=== PATIENT | female | born 1940 | race Caucasian/White ===

== ENCOUNTER 2017-04-09 09:52 | Outpatient (CLI) | payer MEDICARE, OTHER | END 2017-04-09 09:53 | LOC: RAD 09:52 | PROVIDERS: ATTEND Family Medicine | DX: M81.0 Age-related osteoporosis without current pathological fracture (principal); N95.9 Unspecified menopausal and perimenopausal disorder | CPT/HCPCS: 77080 ==

== ENCOUNTER 2018-05-23 16:49 | Outpatient (CLI) | payer MEDICARE, OTHER ==
[2018-05-23 17:13] LABS: BASOPHILS % 0.6 (0.0-1.5); EOSINOPHILS % 1.5 % (0.0-6.8); MEAN CORPUSCULAR VOLUME 74.6 fl (80.0-100.0); MONOCYTES % 5.7 % (0.0-11.0)
[2018-05-23 17:28] LABS: eGFR (African) > 60; eGFR (Non-African) > 60
== END 2018-05-23 16:50 ==
LOC: LAB 16:49
PROVIDERS: ATTEND Family Medicine
DX: R53.82 Chronic fatigue, unspecified (principal); I10 Essential (primary) hypertension
CPT/HCPCS: 36415; 80053; 80061; 84436; 84479; 85025

== ENCOUNTER 2018-06-05 11:55 | Outpatient (CLI) | payer MEDICARE ==
[2018-06-05 18:41] LABS: T3-UPTAKE 41.5 % (25.4-41.2)
== END 2018-06-05 13:34 ==
LOC: LAB 11:55
PROVIDERS: ATTEND Family Medicine
DX: D50.9 Iron deficiency anemia, unspecified (principal); R53.82 Chronic fatigue, unspecified
CPT/HCPCS: 36415; 83540; 84436; 84479

== ENCOUNTER 2018-12-24 08:52 | Outpatient (CLI) | payer MEDICARE, OTHER ==
[2018-12-24 09:20] LABS: MEAN CORPUSCULAR HEMOGLOBIN 20.5 pg (28.0-34.0)
[2018-12-24 09:21] LABS: BASOPHILS % 0.2 (0.0-1.5); EOSINOPHILS % 4.5 % (0.0-6.8); NEUTROPHILS # 4.5 # k/uL (1.4-7.7)
[2018-12-24 11:52] LABS: eGFR (Non-African) > 60
--- NOTE | 2018-12-24 21:00 | Diagnostic Imaging Report ---
DEMETRIS ROBBINS [facility] [address] [facility].[address] [address] Report Submission Date: Dec 24, 2018 12:46:28 PM STAPLE LASTER Patient Study Name: GRANT MAYA Date: Dec 24, 2018 9:14:49 AM STAPLE LASTER Modality Type: US Gender: F Description: US DUPLEX CAROTID BILATERAL : 40 Institution: [facility] Physician: DEMETRIS ROBBINS Examination: Carotid artery ultrasound History: Syncope Comparison exams: None available Findings: Right carotid: Common carotid artery peak systolic velocity 96.4 cm/s; end diastolic velocity 18.1 cm/s. Internal carotid artery peak systolic velocity 96.3 cm/s; end diastolic velocity 25.9 cm/s. External carotid artery velocity to 109.4 cm/s. Vertebral artery velocity 74.2 cm/s Vertebral flow antegrade. Normal waveforms. No occlusive plaquing. Left carotid: Common carotid artery peak systolic velocity 95.9 cm/s; end diastolic velocity 17.7 cm/s. Internal carotid artery peak systolic velocity 122.2 cm/s; end diastolic velocity 27.2 cm/s. External carotid artery velocity to 75.4 cm/s. Vertebral artery velocity 26.4 cm/s Vertebral flow antegrade. Normal waveforms. No occlusive plaquing. Right ICA/CCA Ratio: 1.2; Left ICA/CCA Ratio 1.4 Impression: Carotids ratios not elevated. No restriction to hemodynamic flow. Electronically signed on Dec 24, 2018 12:46:28 PM STAPLE LASTER by: Wil PRETTY
--- NOTE | 2018-12-24 21:01 | Diagnostic Imaging Report ---
DEMETRIS ROBBINS [facility] [address] [facility] [address] [address] Report Submission Date: Dec 24, 2018 12:42:10 PM CUSTOMER LOGISTICS MANAGER Patient Study Name: GRANT MAYA Date: Dec 24, 2018 10:25:23 AM CUSTOMER LOGISTICS MANAGER Modality Type: CT\SR Gender: F Description: CT CHEST W/O CONTRAST : 40 Institution: [facility] Physician: DEMETRIS ROBBINS CT chest without contrast History: 30 lb weight loss Technique: Helically acquired images were obtained from the thoracic inlet to the hemidiaphragms without IV contrast. The study was ordered without IV contrast. Findings: There is thoracic aortic atherosclerosis without aneurysm. There is a single mildly enlarged precarinal lymph node measuring 1.7 x 1.1 cm. There is no pericardial effusion or left pleural effusion. There is a small right pleural effusion. There is mild pleural thickening laterally along the mid and lower left hemithorax and there is pleural thickening anteriorly along the lower right hemithorax. There is a generalized background of moderately severe emphysema. Linear areas of atelectasis versus scarring are present at the lung bases. No parenchymal masses are noted. Impression: Moderate emphysema. Small right pleural effusion. Areas of pleural thickening noted bilaterally as detailed in the body of the report with bibasilar areas of atelectasis versus scarring. Single mildly enlarged, nonspecific precarinal lymph node. Electronically signed on Dec 24, 2018 12:42:10 PM CUSTOMER LOGISTICS MANAGER by: Dayna PRETTY
--- NOTE | 2018-12-24 21:02 | Diagnostic Imaging Report ---
DEMETRIS ROBBINS [facility] [address] [facility].[address] [address] Report Submission Date: Dec 24, 2018 12:34:14 PM SHAPE CARVER Patient Study Name: GRANT MAYA Date: Dec 24, 2018 10:01:27 AM SHAPE CARVER Modality Type: CT\SR Gender: F Description: CT ABD PELVIS W/ CON : 40 Institution: [facility] Physician: DEMETRIS ROBBINS CT abdomen and pelvis with contrast History: 30 lb weight loss. Right-sided palpable mass. Technique: Helically acquired images were obtained from the hemidiaphragms to the pelvic floor following IV contrast. There are no comparison studies. Please see separate chest CT report with regard to intrathoracic findings. Adjacent to the left portal vein, there is a 1.5 cm hepatic cyst. The portal veins are patent. 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 The adrenal glands, gallbladder and pancreas appear normal aside from partial fatty replacement of the pancreatic tail. The left kidney is normal. There is a delayed right nephrogram with right hydronephrosis and right hydroureter. The right ureter extends into a mass at the right lower quadrant. Below the level of the mass, the ureter returns to a normal caliber and no ureteral stones are noted. There has been hysterectomy. The bladder is unremarkable. There is no free fluid in the abdomen or pelvis. Intimately associated with the cecum, there is a large mass which also surrounds the terminal ileum. This large mass measures approximately 6 cm in AP dimension by 7 cm transversely by approximately 6 cm craniocaudally. A portion of the mass does extend anteriorly to abut the right lateral rectus musculature at approximately the level of the right iliac crest. 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 No retroperitoneal lymphadenopathy is noted. No mesenteric lymphadenopathy is noted. No iliac chain lymphadenopathy is noted. No suspicious osseous abnormalities are noted. Impression: Large soft tissue mass at the right lower quadrant which does appear to arise from the cecum, surrounds the terminal ileum and extends anteriorly to abut the undersurface of the right lateral ventral abdominal wall at the level of the right iliac crest. Additionally, secondary to the large mass, there is a delayed right nephrogram with moderate right hydronephrosis and proximal to mid right hydroureter. 1.5 cm hepatic cyst. Heavy aortoiliac atherosclerosis. Electronically signed on Dec 24, 2018 12:34:14 PM SHAPE CARVER by: Dayna PRETTY
== END 2018-12-24 09:20 ==
LOC: RAD 08:52
PROVIDERS: ATTEND Family Medicine
DX: R19.03 Right lower quadrant abdominal swelling, mass and lump (principal); R63.4 Abnormal weight loss; I65.23 Occlusion and stenosis of bilateral carotid arteries; J90 Pleural effusion, not elsewhere classified; J43.9 Emphysema, unspecified; R55 Syncope and collapse
CPT/HCPCS: 36415; 71250; 74177; 80053; 85025; 93880; Q9967

== ENCOUNTER 2019-01-01 09:15 | Emergency (ER) | payer MEDICARE, OTHER ==
[2019-01-01 09:51] LABS: MEAN CORPUSCULAR HEMOGLOBIN 19.9 pg (28.0-34.0)
[2019-01-01 09:52] LABS: BASOPHILS % 0.4 (0.0-1.5); EOSINOPHILS % 1.9 % (0.0-6.8); MONOCYTES % 5.6 % (0.0-11.0); NEUTROPHILS # 6.2 # k/uL (1.4-7.7)
[2019-01-01 10:03] LABS: eGFR (Non-African) > 60
[2019-01-01] MEDS ORDERED: ONDANSETRON HCL/PF 4 MG/ 2ML VIAL IVP ONE (10:37)
[2019-01-01] MEDS ORDERED: 0.9 % SODIUM CHLORIDE 1,000 ML IV ONE ×2 (10:37→10:40)
[2019-01-01] MEDS ORDERED: ONDANSETRON HCL/PF 4 MG/ 2ML VIAL ONE (10:40)
[2019-01-01] MEDS ORDERED: HYDROcodone /APAP 5/325 1 EACH TABLET PO ONE (10:43)
--- NOTE | 2019-01-01 10:50 | ED Physician Documentation ---
Nausea/Vomiting/Diarrhea - HISTORIAN Historian: patient - HPI Stated Complaint: nausea Chief Complaint: Nausea,Vomiting,Diarrhea Additional Information: Patient presents to ED with nausea/vomiting. Patient denies abdominal pain, constipation or diarrhea. She was recently diagnosed with colon mass but has not seen an oncologist yet. Dr. Chau had mentioned a blood transfusion on 12/24/18 with a hemoglobin on 7.5, however, it has not been done yet. Patient states she had a normal bowel movement today and did not notice any blood in her stool. Her uncle last week of prostate cancer with the being tomorrow. Onset: days ago (2) Duration: waxing, waning Timing: gradual onset Context: denies: out of country travel, bad food Severity: moderate - Associated Symptoms Vomiting: mild Diarrhea: other (none) Abdominal Pain: none - ROS CONST: denies: fever CVS/RESP: denies: shortness of breath, cough GI/: denies: constipation, black stools, bloody stools EYES/ENT: denies: problems with vision MS/SKIN/LYMPH: other (restless legs). denies: ankle swelling NEURO/PSYCH: denies: headache - PAST HX Past History: none Other History: other (colon mass) Allergies/Adverse Reactions: Allergies Allergy/AdvReac Type Severity Reaction Status Date / Time naproxen Allergy Verified 01/01/19 09:51 Home Medications: Ambulatory Orders Medication Instructions Recorded Citalopram Hydrobromide 10 mg PO DAILY 01/01/19 [Citalopram HBr] - SOCIAL HX Smoking History: non-smoker Alcohol Use: none Drug Use: none - FAMILY HX Family History: none - VITAL SIGNS Vital Signs: Vital Signs Temp Pulse Resp BP Pulse Ox 97.5 F L 73 20 164/58 92 01/01/19 09:15 01/01/19 17:25 01/01/19 17:25 01/01/19 10:55 01/01/19 17:25 - REVIEWED ASSESSMENTS Nursing Assessment Reviewed: Yes Vitals Reviewed: Yes Progress - Results/Orders Results/Orders: 1430 Patient resting comfortably. She states she is feeling better. 1617 Patient feeling much better after second unit of blood. Hgb 9.5. Patient wants to go home. [address] Chau, he is coming over to talk with patient. 1720 Dr. Chau at bedside. Ok for discharge ED Results Lab/Radiology - Lab Results Lab Results: Lab Results 01/01/19 01/01/19 01/01/19 16:00 13:45 09:25 WBC 6.30 K/ul K/ul 6.10 K/ul K/ul (4.00-12.00) (4.00-12.00) RBC 4.23 M/ul M/ul 3.67 M/ul L M/ul (3.90-5.20) (3.90-5.20) Hgb 9.5 g/dL L g/dL 7.8 g/dL L g/dL (12.0-16.0) (12.0-16.0) Hct 30.0 % L % 25.4 % L % (34.5-46.5) (34.5-46.5) MCV 71.0 fl L fl 69.0 fl L fl (80.0-100.0) (80.0-100.0) MCH 22.4 pg L pg 21.4 pg L pg (28.0-34.0) (28.0-34.0) MCHC 31.7 g/dL g/dL 30.9 g/dL g/dL (30.0-36.0) (30.0-36.0) RDW 20.9 % H % 21.8 % H % (11.3-14.3) (11.3-14.3) Plt Count 355 K/mm3 K/mm3 392 K/mm3 K/mm3 (130-400) (130-400) Neut % (Auto) Lymph % (Auto) [place] % (Auto) Eos % (Auto) Baso % (Auto) Neut # (Auto) Lymph # (Auto) [place] # (Auto) Eos # (Auto) Baso # (Auto) Sodium Potassium Chloride Carbon Dioxide BUN Creatinine Estimated Creat Clear Est GFR ( Amer) Est GFR (Non-Af Amer) Glucose Calcium Total Bilirubin AST ALT Alkaline Phosphatase Total Protein Albumin Lipase 53 U/L U/L (23-300) 01/01/19 01/01/19 09:25 09:25 WBC 7.80 K/ul K/ul (4.00-12.00) RBC 3.65 M/ul L M/ul (3.90-5.20) Hgb 7.3 g/dL L g/dL (12.0-16.0) Hct 23.9 % L % (34.5-46.5) MCV 65.0 fl L fl (80.0-100.0) MCH 19.9 pg L pg (28.0-34.0) MCHC 30.4 g/dL g/dL (30.0-36.0) RDW 19.1 % H % (11.3-14.3) Plt Count 466 K/mm3 H K/mm3 (130-400) Neut % (Auto) 79.3 % H % (39.0-79.0) Lymph % (Auto) 12.8 % L % (16.0-50.0) [place] % (Auto) 5.6 % % (0.0-11.0) Eos % (Auto) 1.9 % % (0.0-6.8) Baso % (Auto) 0.4 (0.0-1.5) Neut # (Auto) 6.2 # k/uL # k/uL (1.4-7.7) Lymph # (Auto) 1.0 # k/uL # k/uL (0.6-4.0) [place] # (Auto) 0.4 # k/uL # k/uL (0.0-0.9) Eos # (Auto) 0.2 # k/uL # k/uL (0.0-0.6) Baso # (Auto) 0.0 # k/uL # k/uL (0.0-0.5) Sodium 137 mmol/L mmol/L (136-145) Potassium 4.2 mmol/L mmol/L (3.5-5.1) Chloride 100 mmol/L mmol/L (98-107) Carbon Dioxide 25 mmol/L mmol/L (22-30) BUN 12 mg/dL mg/dL (7-17) Creatinine 0.99 mg/dL mg/dL (0.52-1.04) Estimated Creat Clear 46 Est GFR ( Amer) > 60 (60 - ) Est GFR (Non-Af Amer) > 60 (60 - ) Glucose 137 mg/dL H mg/dL (74-106) Calcium 8.8 mg/dL mg/dL (8.4-10.2) Total Bilirubin 0.3 mg/dL mg/dL (0.2-1.3) AST 37 U/L U/L (15-46) ALT 22 U/L U/L (13-69) Alkaline Phosphatase 63 U/L U/L (38-126) Total Protein 6.8 g/dL g/dL (6.3-8.2) Albumin 3.8 g/dL g/dL (3.5-5.0) Lipase - Radiology Radiology Impressions: Report Submission Date: Jan 01, 2019 10:42:39 AM AUDIOMETRIST Patient Study Name: GRANT MAYA Date: Jan 01, 2019 10:22:01 AM AUDIOMETRIST Modality Type: DX Gender: F Description: ABDOMEN 1VIEW : 40 Institution: [facility] Physician: JOHNSON GARCIA Examination: Obstruction series History: Abdominal pain Findings: Single view obtained of the abdomen. No abnormal dilation of the large or small bowel. Air and stool throughout the large bowel. No suspicious calcification projecting over the renal fossa or the lower pelvic region. Pelvic phleboliths. Osseous structures demonstrates degenerative spurring. Impression: No bowel obstruction. No suspicious calcifications by plain film sensitivity. Electronically signed on Jan 01, 2019 10:42:39 AM AUDIOMETRIST by: Wil Valdez - Orders Orders: ED Orders Category Date Time Status Administer PreMed .PRN Care 01/01/19 10:05 Active Blood [Administer blood products] NOW Care 01/01/19 10:[address] IV Lock 1T Care 01/01/19 09:36 Active ABDOMEN 1VIEW [RAD] Stat Exams 01/01/19 Completed *HGB/HCT (HEMOGRAM) Stat Lab 01/01/19 13:45 Completed *HGB/HCT (HEMOGRAM) Stat Lab 01/01/19 16:00 Completed CBC/PLATELET/DIFF Routine Lab 01/01/19 09:25 Completed CMP Routine Lab 01/01/19 09:25 Completed CROSSMATCH UNITS RBC LR Stat Lab 01/01/19 Ordered LIPASE Stat Lab 01/01/19 09:25 Completed TYPE AND SCREEN Stat Lab 01/01/19 Ordered 0.9 % Sodium Chloride [Normal Saline] 1,000 ml Med 01/01/19 10:40 Discontinued IV .STK-MED 0.9 % Sodium Chloride [Normal Saline] 1,000 ml Med 01/01/19 10:37 Active IV NOW 0.9 % Sodium Chloride [Normal Saline] 500 ml Med 01/01/19 11:33 Discontinued IV .STK-MED Furosemide [Lasix] Med 01/01/19 17:15 Once 40 mg IVP NOW ONE HYDROcodone /APAP 5/325 [[place] 5/325] Med 01/01/19 10:43 Discontinued 1 each PO NOW ONE Ipratropium/Albuterol Sulfate [Duoneb] Med 01/01/19 16:27 Discontinued 3 ml NEB .STK-MED ONE Ipratropium/Albuterol Sulfate [Duoneb] Med 01/01/19 16:31 Discontinued 3 ml NEB NOW ONE Ondansetron HCl/Pf [Zofran] Med 01/01/19 10:40 Discontinued 4 mg .ROUTE .STK-MED ONE Ondansetron HCl/Pf [Zofran] Med 01/01/19 10:37 Discontinued 4 mg IVP NOW ONE Nausea Physical Exam - EXAM General Appearance: no acute distress, alert EENT: TED Neck: normal inspection Respiratory: chest non-tender, breath sounds normal CVS: reg rate & rhythm, heart sounds normal Abdomen: non-tender, mass (RLQ). No: tenderness Back: painless ROM Skin: warm/dry, pallor Extremities: non-tender Neuro/Psych: oriented X3, motor nml Discharge Clincal Impression: Anemia in chronic illness Referrals: Bernabe Chau MD [Primary Care Provider] - 2 Days Additional Instructions: 1. Zofran as needed for nausea 2. Follow up with Dr. Chau within 1 week 3. Follow up with Oncologist as already scheduled 4. Return to ER for new or worsening symptoms. Condition: Stable Disposition: 01 HOME, SELF-CARE Decision to Admit: NO Date of Decison to Admit: 01/01/19 Decision Time: 17:27
[2019-01-01] MEDS ORDERED: 0.9 % SODIUM CHLORIDE 500 ML IV ONE (11:33)
[2019-01-01 13:59] LABS: MEAN CORPUSCULAR HEMOGLOBIN 21.4 pg (28.0-34.0)
--- NOTE | 2019-01-01 14:02 | Diagnostic Imaging Report ---
JOHNSON GARCIA [facility] [address] [facility] [address] [place] [address]. [id number] Report Submission Date: Jan 01, 2019 10:42:39 AM GYNECOLOGY TEACHER Patient Study Name: GRANT MAYA Date: Jan 01, 2019 10:22:01 AM GYNECOLOGY TEACHER Modality Type: DX Gender: F Description: ABDOMEN 1VIEW : 40 Institution: [facility] Physician: JOHNSON GARCIA Examination: Obstruction series History: Abdominal pain Findings: Single view obtained of the abdomen. No abnormal dilation of the large or small bowel. Air and stool throughout the large bowel. No suspicious calcification projecting over the renal fossa or the lower pelvic region. Pelvic phleboliths. Osseous structures demonstrates degenerative spurring. Impression: No bowel obstruction. No suspicious calcifications by plain film sensitivity. Electronically signed on Jan 01, 2019 10:42:39 AM GYNECOLOGY TEACHER by: Wil PRETTY
[2019-01-01 16:08] LABS: MEAN CORPUSCULAR HEMOGLOBIN 22.4 pg (28.0-34.0)
[2019-01-01] MEDS ORDERED: IPRATROPIUM/ALBUTEROL SULFATE 3 ML AMPUL.NEB NEB ONE ×2 (16:27→16:31)
[2019-01-01] MEDS ORDERED: FUROSEMIDE 40 MG/4 ML VIAL IVP ONE (17:15)
[2019-01-01 17:45] VITALS: BP 162/66
== END 2019-01-01 17:40 | disposition home or self-care (01) ==
LOC: ED 09:15
DX: K63.89 Other specified diseases of intestine (principal); D63.8 Anemia in other chronic diseases classified elsewhere
CPT/HCPCS: 36415; 74018; 80053; 83690; 85014; 85018; 85025; 86885; 86900; 86920; 94640; 96374; 99284; 99285; A9270; J2405; J7030; J7060; P9040; S1016